=== PATIENT | female | born 1955 | race Caucasian/White ===

== ENCOUNTER 2016-04-18 14:08 | Day surgery (SDC) | payer OTHER ==
[~2016-04-18] VITALS: Ht 162.6 cm; Wt 89.4 kg
[~2016-04-18 14:08] MED LIST: BACL10TA PO; DICY10CA60 PO; FLUOXETINE PO; GABAPENTIN PO; HCTZ PO; HYDR-906 PO; HYDROXYCHLOROQUINE PO; METO10TA92 PO; METO25TA7 PO; MONT10TA24 PO; OMEPRAZOLE PO; PANTOPRAZOLE PO
[2016-04-18 15:09] VITALS: Ht 162.6 cm; Wt 89.4 kg
[2016-04-18 15:31] VITALS: BP 107/57; PULSE 51; RESP 18
[2016-04-18] MEDS ORDERED: LIDOCAINE 4% SOLUTION 50 ML BTL ONE (15:35)
[2016-04-18] MEDS ORDERED: MIDAZOLAM 1 MG/ML 2 ML INJ ONE ×2 (16:23)
[2016-04-18] MEDS ORDERED: FENTAnyl 50 MCG/ML VIAL ONE (16:23)
[2016-04-18 16:29] VITALS: BP 115/69; PULSE 60; RESP 24
--- NOTE | 2016-04-19 07:18 | GILP ---
DATE OF PROCEDURE: PREOPERATIVE DIAGNOSIS: Reflux symptoms. PROCEDURE DONE: Esophagogastroduodenoscopy and biopsy in the stomach and duodenum. POSTOPERATIVE DIAGNOSES: 1. Hiatus hernia, moderate size. 2. Distal esophagitis, mild. 3. In the stomach, there was nodularity in the antrum. This was biopsied. 4. Fundus retroflexion showed hiatus hernia. 5. In the second part of the duodenum opposite the ampulla, there is a 5 mm submucosal lesion. Thi s was biopsied. DESCRIPTION OF PROCEDURE: The patient was put in left lateral decubitus after obtaining informed co nsent, was sedated, monitored on oximetry, EKG, blood pressure. She received 3 mg IV Versed, 50 mcg of fentanyl. Advanced an Olympus video upper endoscope into the esophagus, stomach, and duodenum. Examination demonstrated distal esophagitis, mild, with a sliding hiatus hernia, almost 4 cm in siz e, and by retroflexion also this was confirmed. There was some fluid in the stomach. This was suct ioned off. Mild gastritis and in the antrum a small nodular area was noted and this was biopsied. In the pyloric channel, there was no abnormality, but entering the duodenum in the second part oppos ite the ampulla, there was a submucosal lesion which measured about 4 to 5 mm. This was photographe d and biopsy was done. Then the scope was withdrawn. The patient had no complication. Plan will b e to await for biopsy reports, follow up as outpatient, continue medications, hold aspirin for 2 to 3 days. Dictated By: MARK HERNANDEZ Conf#: [id number] DID#: [id number] CC: Francisco Solomon;*EndCC*
== END 2016-04-18 16:29 | disposition home or self-care (01) ==
LOC: GIL 14:08
PROVIDERS: ATTEND Internal Medicine
DX: D17.5 Benign lipomatous neoplasm of intra-abdominal organs (principal); K44.9 Diaphragmatic hernia without obstruction or gangrene; K20.8 Other esophagitis; I10 Essential (primary) hypertension; J45.909 Unspecified asthma, uncomplicated
CPT/HCPCS: 43239; 88305; 88312; J2250; J3010; Z7610

== ENCOUNTER → 2018-05-14 | Outpatient (CLI) | payer OTHER ==
[~2018-05-14] MED LIST changes: +DICY10CA40 PO; -DICY10CA60 PO; -HYDR-906 PO; +METO-335 PO; -METO25TA7 PO
== END | disposition home or self-care (01) ==
LOC: PUL 11:35
PROVIDERS: ATTEND Internal Medicine Pulmonary Disease
DX: J45.909 Unspecified asthma, uncomplicated (principal)
CPT/HCPCS: 36600; 82803